=== PATIENT | female | born 1990 | race Hispanic/Latino ===

== ENCOUNTER 2020-12-06 18:34 | Emergency (ER) | payer SELFPAY ==
[~2020-12-06] VITALS: Ht 167.6 cm; Wt 113.4 kg
[2020-12-06] MEDS ORDERED: MORPHINE SULFATE INJ 4 MG/ML INJ 1ML IV STA (18:40)
[2020-12-06] MEDS ORDERED: ONDANSETRON HCL INJ 2MG/ML 2ML 2 MG/ML VIAL IV STA (18:40)
[2020-12-06] MEDS ORDERED: VANCOMYCIN 1GM/NS 250 ML 250 ML IV SCH (18:45)
[2020-12-06] MEDS ORDERED: SODIUM CHLORIDE 0.9% 1000ML 1,000 ML IV ONE (18:45)
[2020-12-06] MEDS ORDERED: ACETAMINOPHEN 325 MG TAB PO ONE (18:45)
[2020-12-06 19:00] LABS: BASOPHILS % 0.2 % (0.0-1.0); EOSINOPHILS % 0.2 % (0.0-6.0); HEMATOCRIT 38.6 % (34.2-44.1); HEMOGLOBIN 13.2 g/dL (12.0-16.0); LYMPHOCYTES # (AUTO) 2.4 (1.0-3.2); LYMPHOCYTES % 13.8 % (18.0-39.1); MEAN CORPUSCULAR HEMOGLOBIN 30.2 pg (28-32); MEAN CORPUSCULAR HGB CONC 34.2 g/dL (31-35); MEAN CORPUSCULAR VOLUME 88.3 fL (81-99); MONOCYTES # (AUTO) 1.3 (0.2-0.8); MONOCYTES % 7.6 % (4.4-11.3); NEUTROPHILS # (AUTO) 13.2 (2.1-6.9); NEUTROPHILS % 77.7 % (38.7-80.0); PLATELET COUNT 330 x10e3/uL (140-360); RED BLOOD COUNT 4.37 x10e6/uL (3.6-5.1); RED CELL DISTRIBUTION WIDTH 12.5 % (11.7-14.4)
[2020-12-06 19:11] LABS: ALANINE AMINOTRANSFERASE 37 IU/L (0-55); ALBUMIN 3.9 g/dL (3.5-5.0); ALBUMIN/GLOBULIN RATIO 0.9 (0.8-2.0); ALKALINE PHOSPHATASE 150 IU/L (40-150); ANION GAP 15.3 mmol/L (8-16); BLOOD UREA NITROGEN < 5 mg/dL (7-26); CALCIUM 9.5 mg/dL (8.4-10.2); CARBON DIOXIDE 24 mmol/L (22-29); CHLORIDE 102 mmol/L (98-107); CREATININE, SERUM 0.68 mg/dL (0.57-1.11); EST GLOMERULAR FILTRATION RATE > 60 ML/MIN (60-); GLUCOSE 106 mg/dL (74-118); POTASSIUM 3.3 mmol/L (3.5-5.1); SODIUM 138 mmol/L (136-145)
[2020-12-06 19:12] LABS: BUN/CREATININE RATIO 7 (6-25)
[2020-12-06] MEDS: CEFEPIME 1 GM in SODIUM CHLORIDE 0.9% 50ML 50 ML IV SCH ×2 (19:15→22:46)
[2020-12-06] MEDS ORDERED: SODIUM CHLORIDE 0.9% 50ML 50 ML ONE (19:41)
[2020-12-06] MEDS ORDERED: IOPAMIDOL 370 MG/ML 200 ML INFUS..BTL INJ ONE (19:41)
[2020-12-06 23:08] VITALS: BP 125/77
== END 2020-12-06 23:10 | disposition home or self-care (01) ==
LOC: ER 19:00
DX: L02.416 Cutaneous abscess of left lower limb (principal); D72.829 Elevated white blood cell count, unspecified
CPT/HCPCS: 36415; 73701; 80053; 83605; 84702; 85025; 87040; 99284; J0692; J2270; J2405; J3370; J7030; Q9967

== ENCOUNTER 2021-04-11 21:39 | Emergency (ER) | payer OTHER ==
[~2021-04-11] VITALS: Ht 167.6 cm; Wt 113.4 kg
[2021-04-11] MEDS ORDERED: IBUPROFEN 600 MG TAB PO STA (22:02)
[2021-04-11] MEDS ORDERED: TETANUS/DIPHTHERIA TOX ADULT 0.5 ML SYR IM ONE (22:15)
[2021-04-11] MEDS ORDERED: IBUPROFEN 600 MG TAB ONE (22:17)
== END 2021-04-12 00:11 | disposition home or self-care (01) ==
LOC: ER 22:04
DX: S80.272A Other superficial bite of left knee, initial encounter (principal); S69.92XA Unspecified injury of left wrist, hand and finger(s), initial encounter; W54.0XXA Bitten by dog, initial encounter; Y92.89 Other specified places as the place of occurrence of the external cause
CPT/HCPCS: 90714; 99283

== ENCOUNTER 2021-07-11 18:34 | Emergency (ER) | payer SELFPAY ==
[~2021-07-11] VITALS: Ht 167.6 cm; Wt 113.4 kg
== END 2021-07-11 20:40 | disposition home or self-care (01) ==
LOC: ER 20:05
DX: R05.9 Cough, unspecified (principal); J06.9 Acute upper respiratory infection, unspecified; R51.9 Headache, unspecified; D64.9 Anemia, unspecified; Z20.822 Contact with and (suspected) exposure to COVID-19
CPT/HCPCS: 99283; U0002

== ENCOUNTER 2022-03-03 17:38 | Emergency (ER) | payer SELFPAY ==
[~2022-03-03] VITALS: Ht 167.6 cm; Wt 113.4 kg
[2022-03-03] MEDS ORDERED: KETOROLAC TROMETHAMINE 30 MG/ML VIAL IV STA (18:08)
[2022-03-03] MEDS ORDERED: ONDANSETRON HCL INJ 2MG/ML 2ML 2 MG/ML VIAL IV PRN (18:15)
[2022-03-03] MEDS ORDERED: SODIUM CHLORIDE 0.9% 1000ML 1,000 ML IV ONE (18:15)
[2022-03-03] MEDS ORDERED: DEXAMETHASONE SOD PHOS 10 MG/1 ML VIAL IV SCH (18:28)
[2022-03-03] MEDS ORDERED: PROMETHAZINE HC25 M1 PO (19:25)
[2022-03-03] MEDS ORDERED: FIORICET 50-301 EACH PEG (19:25)
== END 2022-03-03 19:59 | disposition home or self-care (01) ==
LOC: ER 18:09
DX: G43.909 Migraine, unspecified, not intractable, without status migrainosus (principal); D64.9 Anemia, unspecified
CPT/HCPCS: 99283; J1100; J1885; J2405; J7030

== ENCOUNTER 2022-05-19 08:01 | Emergency (ER) | payer SELFPAY ==
[~2022-05-19] VITALS: Ht 167.6 cm; Wt 113.4 kg
[~2022-05-19 08:01] MED LIST: FIORICET 50-301 EACH PEG; PROMETHAZINE HC25 M1 PO
[2022-05-19] MEDS ORDERED: SODIUM CHLORIDE 0.9% 1000ML 1,000 ML IV STA (08:21)
[2022-05-19] MEDS ORDERED: KETOROLAC TROMETHAMINE 30 MG/ML VIAL IV STA (08:21)
[2022-05-19] MEDS ORDERED: DEXAMETHASONE SOD PHOS 10 MG/1 ML VIAL IV ONE (08:30)
[2022-05-19] MEDS ORDERED: DIHYDROERGOTAMINE MESYLATE 1 MG/ML AMP IV ONE (08:30)
[2022-05-19] MEDS ORDERED: HYDROCODONE/APAP 7.5MG-325MG 1 EA TAB PO ONE (09:15)
[2022-05-19] MEDS ORDERED: FIORICET 50-301 EACH PO (11:34)
[2022-05-19] MEDS ORDERED: ONDANSETRON ODT4 MG PO (11:34)
== END 2022-05-19 11:49 | disposition home or self-care (01) ==
LOC: ER 08:06
DX: H57.11 Ocular pain, right eye (principal); G43.909 Migraine, unspecified, not intractable, without status migrainosus
CPT/HCPCS: 93005; 99283; J1100; J1110; J1885; J7030

== ENCOUNTER 2022-08-13 17:04 | Emergency (ER) | payer MEDICAID ==
[~2022-08-13] VITALS: Ht 167.6 cm; Wt 117.9 kg
[~2022-08-13 17:04] MED LIST changes: +FIORICET 50-301 EACH PO; +ONDANSETRON ODT4 MG PO
[2022-08-13] MEDS ORDERED: SODIUM CHLORIDE 0.9% 1000ML 1,000 ML IV STA (17:39)
[2022-08-13] MEDS ORDERED: ONDANSETRON HCL INJ 2MG/ML 2ML 2 MG/ML VIAL IV STA (17:39)
[2022-08-13] MEDS ORDERED: Morphine 4mg INJECTION 4 MG/ML INJ IV STA (17:39)
[2022-08-13 17:44] LABS: BASOPHILS % 0.4 % (0.0-1.0); EOSINOPHILS # (AUTO) 0.2 (0.0-0.4); EOSINOPHILS % 1.5 % (0.0-6.0); HEMATOCRIT 37.2 % (34.2-44.1); HEMOGLOBIN 12.8 g/dL (12.0-16.0); LYMPHOCYTES # (AUTO) 2.5 (1.0-3.2); LYMPHOCYTES % 25.1 % (18.0-39.1); MEAN CORPUSCULAR HEMOGLOBIN 30.6 pg (28-32); MEAN CORPUSCULAR HGB CONC 34.4 g/dL (31-35); MONOCYTES # (AUTO) 0.8 (0.2-0.8); MONOCYTES % 7.6 % (4.4-11.3); NEUTROPHILS # (AUTO) 6.4 (2.1-6.9); PLATELET COUNT 331 x10e3/uL (140-360); RED BLOOD COUNT 4.18 x10e6/uL (3.6-5.1); RED CELL DISTRIBUTION WIDTH 12.6 % (11.7-14.4)
[2022-08-13 17:59] LABS: ALBUMIN 3.9 g/dL (3.5-5.0); ALBUMIN/GLOBULIN RATIO 1.1 (0.8-2.0); ANION GAP 12.8 mmol/L (8-16); CALCIUM 9.8 mg/dL (8.4-10.2); CREATININE, SERUM 0.68 mg/dL (0.57-1.11); POTASSIUM 3.8 mmol/L (3.5-5.1)
[2022-08-13] MEDS ORDERED: KETOROLAC TROMETHAMINE 30 MG/ML VIAL IV STA (18:48)
[2022-08-13 19:08] LABS: CLARITY,URINE CLEAR (CLEAR); COLOR,URINE YELLOW (YELLOW); LEUKOCYTE ESTERASE ,URINE NEGATIVE (NEGATIVE); NITRITE,URINE NEGATIVE (NEGATIVE)
[2022-08-13 19:09] LABS: KETONES,URINE NEGATIVE (NEGATIVE); PROTEIN,URINE DIPSTICK NEGATIVE (NEGATIVE); URINE UROBILINOGEN 0.2 mg/dL (0.2 - 1)
[2022-08-13 19:19] LABS: BACTERIA,URINE MODERATE /HPF; EPITHELIAL CELLS,URINE MANY /LPF; RBC,URINE 0-5 /HPF (0-5); WBC,URINE (MAN) 0-5 /HPF (0-5)
[2022-08-13 19:20] LABS: TRANSITIONAL EPI CELLS,URINE FEW
[2022-08-13] MEDS ORDERED: ONDANSETRON ODT4 MG PO (19:56)
[2022-08-13] MEDS ORDERED: IBUPROFEN600 MG PO (19:56)
[2022-08-13] MEDS ORDERED: ESGIC 50-325-41 EACH PO (19:56)
== END 2022-08-13 21:10 | disposition home or self-care (01) ==
LOC: ER 17:18
DX: R10.30 Lower abdominal pain, unspecified (principal); R51.9 Headache, unspecified; D64.9 Anemia, unspecified; R11.0 Nausea
CPT/HCPCS: 36415; 70450; 74177; 80053; 81001; 81025; 83690; 85025; 99284; J1885; J2270; J2405; J7030